=== PATIENT | female | born 1960 | race Caucasian/White ===

== ENCOUNTER 2023-09-12 14:34 | Outpatient (AMB) | payer OTHER, SELFPAY ==
--- NOTE | 2023-09-12 14:36 | A.OFFPC_ITS ---
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 Will order labs. 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 Refuses mammos. Pt has an appointment scheduled with GI. Pt's blood pressure is elevated today. Will have her monitor her BP at home and drop off readings. Denies chest pain, shortness of breath, headache, dizziness, and blurred vision. [facility] Social History Housing: [place] Patient Tobacco Use Status: Former Tobacco user e-Cigarette/Vaping Use: Never Used Cognitive needs: No Hearing needs: No Vision needs: Yes Questionnaire AUDIT C Alcohol Use Questionnaire (AUDIT-C) 1. How often do you have a drink containing alcohol?: Never 3. How often do you have six or more drinks on one occasion?: Never Total Score: 0 Score Reviewed/Action Taken: No Review of Systems Const Denies chills and Denies fever(s) Eyes Denies blurry vision ENT Denies vertigo, Denies dizziness and Denies sore throat Card Denies chest pain at rest, Denies chest pain with activity, Denies diaphoresis, Denies dyspnea and Denies dyspnea on exertion Resp Denies cough, Denies dyspnea, Denies dyspnea on exertion and Denies wheezing GI Denies abdominal pain, Denies melena, Denies hematochezia, Denies constipation, Denies diarrhea and Denies loose stools Denies hematuria Musc Denies numbness and Denies tingling Skin/Breast Denies lesions Neuro Denies vertigo, Denies dizziness, Denies numbness and Denies tingling Psych Denies anxiety, Denies depression, Denies homicidal ideation, Denies suicidal ideation and Denies other (substance abuse) Aller/Immun Denies wheezing Physical exam (Primary Care) Vital Signs: Last Vital Signs Pulse 54 09/12/23 14:39 BP 130/100 H 09/12/23 14:39 Pulse Ox 99 09/12/23 14:39 Oxygen Delivery Method Room Air 09/12/23 14:39 BMI result Body Mass Index 24.0 Tobacco/Smoking Status: Tobacco use Status Tobacco use date assessed 09/12/23 09/12/23 14:42 Patient Tobacco Use Status Former Tobacco user 09/12/23 14:42 e-Cigarette/Vaping Use Never Used 09/12/23 14:42 Const General: cooperative Nutritional Appearance: well nourished Orientation/consciousness: patient oriented x3 HENMT Head: Yes normal to inspection, Yes normocephalic and Yes atraumatic Ears: TM's normal bilaterally Eyes General: appearance normal, both eyes and all related structures Alignment and Position: alignment normal and position normal Neck Neck: Yes normal visual inspection and Yes no lymphadenopathy Thyroid: Thyroid normal Resp Effort & Inspection: normal respiratory effort Auscultation: clear to auscultation bilaterally Cardio Rate: regular rate Rhythm: regular rhythm Heart sounds: S1 normal heart sound present, S2 normal heart sound present and no murmurs GI Palpation (GI): Soft to palpation and nontender Auscultation: normal bowel sounds Skin Rashes: no rashes Neuro General: patient oriented x3, moves all extremities, no focal motor deficits and deep tendon reflexes 2+ bilaterally Romberg Test: Negative Psych Appearance: grossly normal Mental Status: mental status grossly normal Speech and movement: Normal speech and movement present Affect: normal affect Attitude: cooperative Thought process: Normal thought process present Thought content: Normal thought content present Insight: Good insight present (Psych) Judgement: Good judgement present (Psych) Assessment and Plan Assessment & Plan (1) Physical exam: Code(s): Z00.00 - Encounter for general adult medical examination without abnormal findings Plan: Labs ordered (2) Postmenopausal: Code(s): Z78.0 - Asymptomatic menopausal state Plan: Vitamin D ordered (3) HTN (hypertension): Code(s): I10 - Essential (primary) hypertension Plan: drop off BPs from home Plan The patient agreed to the use of a medical technologist microbiology for this encounter. Scribed for ESTHELA Canaels by ke English scribe, on 09/12/2023 at 14:50 EST Orders: Orders Complete Blood Count Auto Diff Today Z00.00 - Encounter for general adult medical examination without abnormal findings Comprehensive Pine. Panel Fast Today Z00.00 - Encounter for general adult medical examination without abnormal findings TSH reflex Free T4 Today Z00.00 - Encounter for general adult medical examination without abnormal findings UA CC w/rflx Micro + Cult Today Z00.00 - Encounter for general adult medical examination without abnormal findings Lipid Panel Today Z00.00 - Encounter for general adult medical examination without abnormal findings Vitamin D 25-OH Total Today Z78.0 - Asymptomatic menopausal state AMB EKG-In Office Today Z00.00 - Encounter for general adult medical examination without abnormal findings Coding Level of Care Code New Pt Prev Care 40-64y(20093) Diagnoses Physical exam Z00.00 Postmenopausal Z78.0 HTN (hypertension) I10
[2023-09-12 14:39] VITALS: BP 130/100; PULSE 54; O2SAT 99; BMI 24.0
== END 2023-09-12 15:46 | disposition home or self-care (01) ==
PROVIDERS: Visit Provider Nurse Practitioner Family
DX: Z00.00 Encounter for general adult medical examination without abnormal findings (principal); Z78.0 Asymptomatic menopausal state; I10 Essential (primary) hypertension
CPT/HCPCS: 99386

== ENCOUNTER 2023-09-13 06:28 | Outpatient (REF) | payer OTHER, SELFPAY ==
[2023-09-13 11:19] LABS: MANUAL DIFF FLAG NO
[2023-09-13 11:37] LABS: Appearance Urine Clear; Color Urine Yellow; Glucose Urine UA Negative (Negative); Leukocyte Esterase Urine Trace (Negative); Nitrite Urine Negative (Negative); PH 6.5 (5.0-9.0); UMIC TRIGGER UACC YES; Urine Blood Negative (Negative); Urine Ketones Negative (Negative); Urine Protein Negative (Neg-Trace)
[2023-09-13 11:46] LABS: Basophils Absolute Auto 0.1 X10*3/uL (0.0-0.2); Basophils Percent Auto 1.2 % (0-2); Eosinophils Absolute Auto 0.1 X10*3/uL (0.0-0.4); Eosinophils Percent Auto 2.5 % (0-4); Hematocrit 45.1 % (37.0-47.0); Hemoglobin 14.5 g/dl (12.0-16.0); Imm Gran Abs Auto 0.02 X10*3/uL (0.00-0.03); Imm Gran Pct Auto 0.4 % (0.0-0.4); Lymphocytes Absolute Auto 2.4 X10*3/uL (1.2-4.9); Lymphocytes Percent Auto 42.3 % (20-40); Mean Corpuscular HGB Conc 32.2 g/dl (31.0-35.0); Mean Corpuscular Hemoglobin 28.8 pg (27.0-33.0); Mean Corpuscular Volume 89.5 fL (80.0-98.0); Mean Platelet Volume 10.4 fL (9.4-12.3); Monocytes Absolute Auto 0.4 X10*3/uL (0.1-1.2); Monocytes Percent Auto 6.4 % (2-11); Neutrophils Absolute Auto 2.7 x10*3/uL (2.0-8.3); Neutrophils Percent Auto 47.2 % (45-73); Platelet Count 283 X10*3/uL (160-400); Red Blood Count 5.04 X10*6/uL (4.20-5.50); Red Cell Distribution Width 13.2 % (11.0-16.0); White Blood Count 5.7 X10*3/uL (4.8-10.8)
[2023-09-13 11:48] LABS: Bacteria Urine None Seen (None Seen); Hyaline Casts Urine 0-2 /LPF (0-2); Squamous Epithelial Cell Urine 0-2 /HPF (0-2); WBC Urine 0-5 /HPF (0-5)
[2023-09-13 12:14] LABS: Alanine Aminotransferase 16 U/L (0-31); Albumin Level 4.3 g/dL (3.5-5.0); Alkaline Phosphatase 58 U/L (39-117); Anion Gap 12 (12-20); Aspartate Amino Transferase 19 U/L (5-31); Bilirubin Total 0.6 mg/dL (0.0-1.0); Blood Urea Nitrogen 15 mg/dL (9-16); Calcium 9.6 mg/dL (8.4-10.2); Carbon Dioxide 28 mmol/L (22-29); Chloride 104 mmol/L (96-108); Cholesterol 300 mg/dL (<200); Estimated Glomerular Filt Rate > 60; Glucose Fasting 79 mg/dL (60-99); HDL Cholesterol 80 mg/dL (>40); LDL Cholesterol Calculated 204 mg/dL (<100); Potassium 3.8 mmol/L (3.3-5.1); Sodium 140 mmol/L (135-145); TSH reflex Free T4 2.82 uIU/mL (0.32-4.0); Total Protein 7.4 g/dL (6.5-8.0); Triglycerides 80 mg/dL (<150); Vitamin D 25-OH Total > 154.2 ng/mL (>30)
== END 2023-09-13 06:29 | disposition home or self-care (01) ==
LOC: HO.HMGCLDS 06:28
PROVIDERS: PCP Nurse Practitioner Family; Visit Provider Nurse Practitioner Family
DX: Z00.00 Encounter for general adult medical examination without abnormal findings (principal); Z78.0 Asymptomatic menopausal state
CPT/HCPCS: 36415; 80053; 80061; 81001; 82306; 84443; 85025

== ENCOUNTER 2023-09-24 10:06 | Day surgery (SDC) | payer OTHER, SELFPAY ==
[2023-09-24 10:05] VITALS: BMI 24.0
[2023-09-24 10:11] VITALS: BP 160/74; PULSE 69; RESP 18; TEMP 36.1; O2SAT 98
[2023-09-24] MEDS: Lactated Ringers 1,000 ML 100 ML IVCONT (10:32)
--- NOTE | 2023-09-24 11:35 | HO.ANESPROP2 ---
Documented by User: Mary Alice Soto NP 09/23/23 13:37 HPI - Anesthesia Eval Consult details Narrative: 63yo F for Colonoscopy PMFSH Active Problems Active Problems: All Active Problems (Updated 09/23/23 @ 11:47 by Dianna Miramontes RN) HTN (hypertension) (Acute) Postmenopausal (Acute) Physical exam (Acute) Past Medical History Medical History (Updated 09/23/23 @ 11:47 by Dianna Miramontes RN) Hx of colonic polyps Surgical History Surgical History (Updated 09/24/23 @ 10:26 by Dianna Miramontes RN) Hx of breast surgery Hx of bilateral salpingo-oophorectomy Hx of colonoscopy Social History Social History Housing: House Patient Tobacco Use Status: Former Tobacco user e-Cigarette/Vaping Use: Never Used Are you DNR?: No Advance Directives: No Advance Directives Information Provided: Yes Cognitive needs: No Hearing needs: No Vision needs: Yes Meds Allergies Allergy/AdvReac Type Severity Reaction Status Date / Time No Known Allergies Allergy Verified 09/12/23 14:40 Home Medications Medication Instructions Recorded Confirmed Last Taken Type multivitamin 09/23/23 09/23/23 Unknown History Exam Exam Date and Time: September 23, 2023 1337 Pertinent Lab Results Pertinent Lab Results: Laboratory Tests 09/13/23 06:38 WBC 5.7 Hgb 14.5 Hct 45.1 Plt Count 283 Sodium 140 Potassium 3.8 Chloride 104 Carbon Dioxide 28 BUN 15 Creatinine 0.64 Assessment and Plan Assessment Anesthesia Assessment: Chart Reviewed Documented by User: Gely Alcala DO 09/24/23 11:40 PMFSH Past Medical History Medical History (Updated 09/23/23 @ 11:47 by Dianna Miramontes RN) Hx of colonic polyps Surgical History Surgical History (Updated 09/24/23 @ 10:26 by Dianna Miramontes RN) Hx of breast surgery Hx of bilateral salpingo-oophorectomy Hx of colonoscopy History of Problems with Anesthesia: Yes (PONV) Social History Social History Housing: House Patient Tobacco Use Status: Former Tobacco user e-Cigarette/Vaping Use: Never Used Are you DNR?: No Advance Directives: No Advance Directives Information Provided: Yes Cognitive needs: No Hearing needs: No Vision needs: Yes Meds Allergies Allergy/AdvReac Type Severity Reaction Status Date / Time No Known Allergies Allergy Verified 09/12/23 14:40 Home Medications Medication Instructions Recorded Confirmed Last Taken Type multivitamin 09/23/23 09/23/23 Unknown History Exam Exam Date and Time: September 24, 2023 1131 Height,Weight and Vital Signs: Height 5 ft Weight 55.792 kg Vital Signs Temperature 97 F 09/24/23 10:11 Pulse Rate 69 09/24/23 10:11 Respiratory Rate 18 09/24/23 10:11 Blood Pressure 160/74 H 09/24/23 10:11 Pulse Oximetry 98 09/24/23 10:11 Oxygen Delivery Method Room Air 09/24/23 10:11 Temperature 97 F 09/24/23 10:11 Pulse Rate 69 09/24/23 10:11 Respiratory Rate 18 09/24/23 10:11 Blood Pressure 160/74 H 09/24/23 10:11 Pulse Oximetry 98 09/24/23 10:11 Oxygen Delivery Method Room Air 09/24/23 10:11 Airway Mallampati Class: I TM Dist: >3cm Neck ROM: Full Loose/Missing/Broken Teeth: Yes (broken molars right side) Heart: S1S2 Lungs: CTAB Assessment and Plan Assessment Anesthesia Assessment: Anesthesia Plan Discussed and Chart Reviewed Final Anesthetic Review History of Problems with Anesthesia: Yes (PONV) NPO: Yes ASA Class: II Final Preanesthetic Review: No Changes in Pt Med Stat, Meds/Allgs Chart Reviewed, Consent Obtained/Reviewed and Anes Risks/Benef Reviewed Patient Risk: Low Procedure Risk: Low Anesthetic Plan Anesthetic Plan: MAC: and Agree w/ Assess. and Plan Disposition: Standard PACU
--- NOTE | 2023-09-24 11:37 | MHC.SHP ---
Pre-Procedural Eval Section A Date of Service: 09/24/23 The patient is an INPATIENT: No Changes since office visit: No Cold of Flu in the past 2 weeks, No New Medical Problems, No Changes in Medication and No Patient answered all questions The History & Physical has been completed within 30 days and I have reviewed it.: Yes Section B Chief Complaint: screening Allergies: Allergies Allergy/AdvReac Type Severity Reaction Status Date / Time No Known Allergies Allergy Verified 09/12/23 14:40 Plan I have reviewed the history and physical and performed a pertinent physical examination on my patient. No changes have occurred unless specified. Time Spent With Patient Time: Total time managing care of this patient today ____ minutes.
[2023-09-24 12:18] VITALS: BP 120/68; PULSE 67; RESP 15; TEMP 36.3; O2SAT 95
--- NOTE | 2023-09-24 12:30 | OP_ITS ---
DATE OF SERVICE: 09/24/2023 SURGEON: Kash Zhang MD INDICATIONS: Colon cancer screening. PREOPERATIVE DIAGNOSIS: POSTOPERATIVE DIAGNOSIS: PROCEDURE PERFORMED: Colonoscopy to the terminal ileum with biopsy. ESTIMATED BLOOD LOSS: COMPLICATIONS: ANESTHESIA: Monitored anesthesia care. ASSISTANTS: SPECIMENS: DESCRIPTION OF PROCEDURE: A history and physical were performed. The risks and benefits of the procedure were explained to the patient. Informed consent was obtained. The patient was placed in a left lateral decubitus position. A digital rectal exam was performed and was found to be normal. The Olympus pediatric video colonoscope was introduced into the rectum and advanced to the cecum. The cecum was identified by transillumination, palpation, and identification of the ileocecal valve. Examination was performed and the scope was removed. She tolerated the procedure well and was taken to recovery area in stable condition. FINDINGS: The terminal ileum was examined and appeared normal. The visualized colonic mucosa was normal. The quality of the prep was good. In the cecum, on the ileocecal valve was a less than 5 mm sessile polyp, which was removed with biopsy forceps. No other polyps were identified. There was moderate sigmoid diverticulosis with some luminal narrowing and redundancy in the sigmoid. Retroflexed examination showed some small internal hemorrhoids. IMPRESSION: Colon polyp. RECOMMENDATION: Follow up biopsy results. MD JOB Wyman/KURTIS / [id number]
[2023-09-24 12:32] VITALS: BP 149/90; PULSE 66; RESP 15; TEMP 36.3; O2SAT 97
== END 2023-09-24 13:15 | disposition home or self-care (01) ==
PROVIDERS: PCP Nurse Practitioner Family; Visit Provider Internal Medicine Gastroenterology
PROC: 0DJD8ZZ Inspection of Lower Intestinal Tract, Via Natural or Artificial Opening Endoscopic (ICD-10-PCS; CPT 45378; principal; 2023-09-24 11:40)
DX: Z12.11 Encounter for screening for malignant neoplasm of colon (principal); Z86.010 Personal history of colon polyps; D12.0 Benign neoplasm of cecum; K57.30 Diverticulosis of large intestine without perforation or abscess without bleeding; K64.8 Other hemorrhoids; M41.9 Scoliosis, unspecified; Z98.890 Other specified postprocedural states
CPT/HCPCS: 45380; 88305